=== PATIENT | female | born 1975 | race Caucasian/White ===

== ENCOUNTER → 2023-05-15 | Outpatient (CLI) | payer BC | END | disposition home or self-care (01) | LOC: MAMMO 10:23 | DX: N63.20 Unspecified lump in the left breast, unspecified quadrant (principal) | CPT/HCPCS: 76641; 77066 ==

== ENCOUNTER → 2023-11-28 | Outpatient (CLI) | payer BC | END | disposition home or self-care (01) | LOC: US 06:52 | DX: R10.2 Pelvic and perineal pain (principal); Z90.710 Acquired absence of both cervix and uterus | CPT/HCPCS: 76830; 76856 ==